=== PATIENT | female | born 1985 | race Caucasian/White ===

== ENCOUNTER → 2025-06-07 | Outpatient (CLI) | payer OTHER, SELFPAY ==
--- NOTE | 2025-06-07 10:00 | XR_ITS ---
Examination: Abdomen sonogram, Limited Date and time of exam: June 07, 2025 1032 hours INDICATIONS: Right upper abdominal pain beginning 8 months ago Technique: Real-time greenfield scale transabdominal sonographic images of the upper abdomen obtained. Findings: Negative for gallstones. Gallbladder wall 0.39 cm no edema Common duct 0.4 cm no stones Pancreatic head 2.3 cm Liver 16.2 cm fatty infiltration no focal liver lesions. Normal hepatopedal portal venous flow Patent IVC IMPRESSION: Negative for cholelithiasis, negative for cholecystitis
--- NOTE | 2025-06-07 11:00 | XR_ITS ---
Examination: Transvaginal ultrasound of the pelvis, complete Technique: Transvaginal sonographic images pelvis performed using greenfield scale imaging Exam date and time: June 07, 2025 1044 hours INDICATIONS: Worsening pelvic pain beginning 2017 FINDINGS: Uterus 10.2 cm endometrial stripe 1.1 cm No uterine mass or intrauterine gestation Ovaries obscured by bowel gas IMPRESSION: No uterine mass or intrauterine gestation.
--- NOTE | 2025-06-07 11:00 | XR_ITS ---
Examination: Pelvic ultrasound, transabdominal, complete Technique: Transabdominal ultrasound of the pelvis performed using grayscale imaging Date and time of exam: June 07, 2025 1038 hours INDICATIONS: Pelvic pain beginning 2017 FINDINGS: Uterus 9.8 cm endometrial stripe 1.2 cm No uterine mass or intrauterine gestation Right ovary 3.0 cm arterial flow. Left ovary 3.7 cm arterial flow No fluid in the cul-de-sac IMPRESSION: No uterine mass or intrauterine gestation
== END | disposition home or self-care (01) ==
LOC: CDIM 10:07
PROVIDERS: PCP Nurse Practitioner Family; Referring Provider Nurse Practitioner Family; Visit Provider Nurse Practitioner Family
DX: R10.11 Right upper quadrant pain (principal); R10.32 Left lower quadrant pain
CPT/HCPCS: 76705; 76830; 76856

== ENCOUNTER → 2025-07-23 | Outpatient (CLI) | payer OTHER, SELFPAY ==
--- NOTE | 2025-07-23 15:30 | XR_ITS ---
Examination: MRI lumbar spine without contrast Date and time of exam: July 23, 2025, 1600 hours INDICATIONS: Low back pain since 2018 Technique: Multiple MRI axial and sagittal sections lumbar spine. Sagittal T2-weighted images, TR 3500, TE 118 T1 weighted transverse sections, TR 688 T8.5, T2-weighted sagittal sections T1 weighted sagittal sections TR 621, TE 30 T2 axial sections, TR 4, 190, TE 84. Findings: Adequate alignment lumbar vertebral bodies Disc desiccation L4-L5. No lumbar fracture. Normal marrow signal No spondylolisthesis L5-S1 3.5 mm central right paracentral disc bulge which is contiguous with the right S1 nerve root L4-L5 3 mm left foraminal disc bulge but no ganglionic impression More cephalad levels are unremarkable IMPRESSION: L5-S1 3.5 mm central right paracentral disc bulge which is contiguous with the right S1 nerve root
== END | disposition home or self-care (01) ==
LOC: SMRI 15:17
PROVIDERS: PCP Nurse Practitioner Family; Referring Provider Nurse Practitioner Family; Visit Provider Nurse Practitioner Family
DX: M51.370 Other intervertebral disc degeneration, lumbosacral region with discogenic back pain only (principal)
CPT/HCPCS: 72148